=== PATIENT | male | born 1965 | race Caucasian/White ===

== ENCOUNTER 2019-11-03 11:23 | Outpatient (CLI) | payer SELFPAY ==
--- NOTE | 2019-11-03 | XR_ITS ---
WS: [id number] FOOT RIGHT TECHNIQUE: 3 views of the right foot CLINICAL INFORMATION: RIGHT FOOT PAIN COMPARISON: None. FINDINGS: No evidence of acute fracture or dislocation. Normal tarsal metatarsal alignment. Normal calcaneus. N ormal visualized talar dome. Mild dorsal soft tissue edema XR/XR foot RT min 3V* [id number] IMPRESSION: Mild dorsal foot soft tissue edema. No visualized fractures.
== END 2019-11-03 11:24 | disposition home or self-care (01) ==
PROVIDERS: Family Provider Family Medicine; PCP Family Medicine; Visit Provider Nurse Practitioner Family
DX: Z76.89 Persons encountering health services in other specified circumstances (principal)

== ENCOUNTER 2020-01-14 15:59 | Outpatient (CLI) | payer BC, SELFPAY ==
--- NOTE | 2020-01-14 16:30 | USCV_ITS ---
Genaro Mcqueen Age: 54 Gender: M : 1965 Exam Date: 01/14/2020 16:22 Ordering Phys: Cait England APN, APN Technologist: Jelena Ramirez Exam Location: [facility] – [place] Indication: paroxysmal afib BP: / HR: 122 Rhythm: Sinus Technical Quality: Adequate MEASUREMENTS (Male / Female) Normal Values 2D ECHO LV Diastolic Diameter PLAX 4.5 cm 4.2 - 5.9 / 3.9 - 5.3 cm LV Systolic Diameter PLAX 3.0 cm IVS Diastolic Thickness 1.3 cm 0.6 - 1.0 / 0.6 - 0.9 cm IVS Systolic Thickness 1.4 cm LVPW Diastolic Thickness 1.0 cm 0.6 - 1.0 / 0.6 - 0.9 cm LVPW Systolic Thickness 1.6 cm LVOT Diameter 2.1 cm LV Ejection Fraction 2D Teich 63.1 % LV Ejection Fraction MOD 2C 77.3 % LV Ejection Fraction 2C AL 78.3 % LA Diameter 3.0 cm LA Width 2.7 cm LA Height 4.0 cm RA Width 4.3 cm RA Height 5.1 cm M-MODE LV Diastolic Diameter MM 5.7 cm 4.2 - 5.9 / 3.9 - 5.3 cm LV Systolic Diameter MM 3.9 cm LV Ejection Fraction MM Teich 59.6 % IVS Diastolic Thickness MM 0.9 cm 0.6 - 1.0 / 0.6 - 0.9 cm IVS Systolic Thickness MM 1.2 cm LVPW Diastolic Thickness MM 0.7 cm 0.6 - 1.0 / 0.6 - 0.9 cm LVPW Systolic Thickness MM 2.0 cm Aortic Annulus Diameter 3.3 cm LA Ao Ratio MM 0.9 MV E Point Septal Separation 0.6 cm DOPPLER AV Peak Velocity 67.0 cm/s LVOT Peak Velocity 73.0 cm/s AV Area Cont Eq vti 3.8 cm squared AV Area Cont Eq pk 3.8 cm squared MV Peak Velocity 92.0 cm/s MV Area PHT 4.9 cm squared Mitral E to A Ratio 2.0 MV E' Velocity 22.0 cm/s Mitral E to MV E' Ratio 4.0 Mitral E to LV E' Lateral Ratio 3.6 Mitral E to LV E' Septal Ratio 4.4 TR Peak Velocity 33.0 cm/s TR Peak Gradient 0.4 mmHg PV Peak Velocity 92.0 cm/s RV Acceleration Time 0.1 s FINDINGS Left Ventricle Normal left ventricular size and systolic function, EF 77 %. No regional wall motion abnormalities. Mild hypokinesia of the apical inferior wall segment Right Ventricle Normal right ventricular size and systolic function. Right Atrium Catheter/pacemaker wire in the right atrial cavity. Mildly increased right atrial size. Left Atrium Mildly increased left atrial size. Mitral Valve No gross abnormalities noted. Aortic Valve No gross abnormalities noted Tricuspid Valve No gross abnormalities noted Pulmonic Valve Could not be visualized well Pericardium No pericardial effusion. Aorta Normal aortic annulus size. CONCLUSIONS Normal left ventricular size and systolic function, EF 77 %. Segmental wall motion abnormalities as mentioned above. No significant stenotic or regurgitant valves. Mild biatrial enlargement Possible catheter/pacemaker wire in the right atrium There are no other intracardiac masses. There is no pericardial effusion. Dr Aiden Rodriguez MD FACC (Electronically Signed) Final Date: 14 Jan 2020 18:35 S
== END 2020-01-14 16:00 | disposition home or self-care (01) ==
LOC: RAD 16:02
PROVIDERS: PCP Family Medicine; Visit Provider Nurse Practitioner
DX: I48.0 Paroxysmal atrial fibrillation (principal); I51.7 Cardiomegaly
CPT/HCPCS: 93306

== ENCOUNTER 2020-11-09 13:09 | Outpatient (CLI) | payer BC, SELFPAY ==
--- NOTE | 2020-11-09 14:05 | PFTS_ITS ---
Date of Study:11/09/20 Date of Dictation: MECHANICS: Forced vital capacity (FVC) is reduced. Forced expiratory volume in one second (FEV1) is reduced. FEV1/FVC is normal. FLOW VOLUME LOOP: Minimal scooping. LUNG VOLUMES: Total lung capacity (TLC) is normal. Residual volume (RV) is normal. DIFFUSING CAPACITY FOR CARBON MONOXIDE: Mild reduced. INTERPRETATION: The pulmonary function tests are consistent with nonspecific ventilatory limitation. Postbronchodilator spirometry is consistent with mild restriction however the patient's lung volumes are normal. This is likely secondary combination of obstructive and restrictive ventilatory defects. Lung volumes are normal. Gas exchange (DLCO) is mildly reduced. MTDD
== END 2020-11-09 13:10 | disposition home or self-care (01) ==
LOC: RT 13:12
PROVIDERS: PCP Family Medicine; Visit Provider Family Medicine
DX: R06.00 Dyspnea, unspecified (principal)
CPT/HCPCS: 94060; 94726; 94729; J7611

== ENCOUNTER → 2024-02-05 09:54 | Outpatient (CLI) | payer BC, SELFPAY ==
--- NOTE | 2024-02-05 10:15 | USCV_ITS ---
Genaro Mcqueen Age: 58 Gender: M : 1965 Exam Date: 02/05/2024 10:26 Ordering Phys: Luis Alberto Henry MD Technologist: INES [place] [facility] [place]: CVA BP: 125 / 79 HR: 80 Rhythm: Sinus Technical Quality: Adequate MEASUREMENTS (Male / Female) Normal Values 2D ECHO LV Diastolic Diameter PLAX 4.7 cm 4.2 - 5.9 / 3.9 - 5.3 cm IVS Diastolic Thickness 0.8 cm 0.6 - 1.0 / 0.6 - 0.9 cm IVS Systolic Thickness 1.7 cm LVPW Diastolic Thickness 1.5 cm 0.6 - 1.0 / 0.6 - 0.9 cm LVPW Systolic Thickness 2.2 cm LVOT Diameter 2.0 cm LV Ejection Fraction 2D Teich 66.0 % LV Ejection Fraction MOD 2C 53.0 % LV Ejection Fraction 2C AL 55.5 % LA Diameter 2.8 cm RA Systolic Volume 4C AL 12.0 ml RA Systolic Volume 4C MOD 11.9 ml LA Sys Volume AL 27.4 cm cubed LA Sys Volume Index AL 11.7 cm cubed/m squared Aorta at Sinotubular Diameter 2.5 cm IVC Diameter 1.6 cm M-MODE LA Ao Ratio MM 0.9 AV Cusp Separation MM 1.5 cm DOPPLER AV Peak Velocity 96.0 cm/s LVOT Peak Velocity 64.0 cm/s AV Area Cont Eq vti 2.1 cm squared AV Area Cont Eq pk 2.1 cm squared MV Peak Velocity 55.0 cm/s MV Area PHT 3.2 cm squared Mitral E to A Ratio 0.9 TR Peak Velocity 135.0 cm/s TR Peak Gradient 7.3 mmHg TR Mean Velocity 123.0 cm/s TR Mean Gradient 6.2 mmHg TR Velocity Time Integral 39.7 cm TV Peak E Velocity 44.0 cm/s Right Atrial Pressure 3.0 mmHg Pulmonary Artery Systolic Pressu 10.3 mmHg PV Peak Velocity 115.0 cm/s RV Ejection Time 0.3 s FINDINGS Left Ventricle Normal left ventricular size, systolic function and wall thickness, with no regional wall motion abnormalities.left ventricular ejection fraction is estimated at 55 %. Grade I/IV diastolic dysfunction (abnormal relaxation filling pattern), normal to mildly elevated filling pressures. Right Ventricle The right ventricle is normal in size and function. Right Atrium The right atrium is normal in size. Left Atrium The left atrium is normal in size. Mitral Valve Structurally normal mitral valve without significant stenosis or prolapse. There is trace mitral regurgitation. Aortic Valve Structurally normal aortic valve without significant sclerosis or stenosis. There is no aortic regurgitation. Tricuspid Valve Structurally normal tricuspid valve without significant stenosis or regurgitation. Pulmonary artery systolic pressure is normal. Pulmonic Valve Structurally normal pulmonic valve without significant stenosis. There is no pulmonic regurgitation. Pericardium Normal pericardium without effusion. Aorta Normal ascending aorta dimension. IVC The inferior vena cava appears normal. CONCLUSIONS 1-Normal left ventricular size, systolic function and wall thickness, with no regional wall motion abnormalities.left ventricular ejection fraction is estimated at 55 %. Grade I/IV diastolic dysfunction (abnormal relaxation filling pattern), normal to mildly elevated filling pressures. 2-No significant valve abnormalities. 3-There is no pericardial effusion. 4-Right atrial pressure is around 5 mm of mercury. Berta Bowens MD (Electronically Signed) Final Date: 05 February 2024 23:15 S
--- NOTE | 2024-02-05 11:00 | USCV_ITS ---
Genaro Mcqueen Age: 58 Gender: M : 1965 Exam Date: 02/05/2024 10:08 Ordering Phys: Luis Alberto Henry MD Technologist: INES Exam Location: [facility] – [place] Indication: CVA Risk Factors: Previous Vascular Surgery: Right Brachial BP: / Left Brachial BP: / Right Left Velocity (cm/s) Spectral Plaque Velocity (cm/s) Spectral Plaque Syst/Diast Broadening Syst/Diast Broadening 89.50/ 26.60 Prox CCA 129.40/ 40.00 92.00/ 31.70 Mid CCA 89.80 / 35.00 84.20/ 26.90 Distal CCA 76.30 / 30.70 49.40/ 22.40 Prox ICA 48.10 / 15.80 71.30/ 33.30 Mid ICA 52.70 / 25.40 96.00/ 48.80 Distal ICA 64.40 / 33.60 58.10 ECA 66.90 1.10 ICA/CCA 0.80 Antegrade Vertebral Antegrade 45.30/ 20.00 cm/s 46.10/ 20.20 cm/s Tri Subclavian Tri 69.50 134.0 0 CONCLUSIONS Right ICA stenosis <50%. Mild atheromatous plaque right carotid bulb/ICA. Left ICA stenosis <50%. Mild atheromatous plaque left carotid bulb/ICA. Intimal thickening in the common carotid arteries and internal carotid arteries bilaterally. Normal antegrade Doppler flow noted in the right vertebral artery. Normal antegrade Doppler flow noted in the left vertebral artery. Simone Jacobs MD (Electronically Signed) Final Date: 05 February 2024 13:50 S
== END | disposition home or self-care (01) ==
LOC: RAD 09:54
PROVIDERS: PCP Family Medicine; Visit Provider Family Medicine
DX: Z86.73 Personal history of transient ischemic attack (TIA), and cerebral infarction without residual deficits (principal); I77.89 Other specified disorders of arteries and arterioles; I34.0 Nonrheumatic mitral (valve) insufficiency
CPT/HCPCS: 93306; 93880